=== PATIENT | female | born 1990 | race Caucasian/White ===

== ENCOUNTER → 2022-03-27 | Outpatient (CLI) | payer OTHER ==
[~2022-03-27] MED LIST: APRI; Augmentin 875-1 EACH PO; HYDR1TAB94 PO; Mirena1 EACH VG; NAPR550 PO
[2022-03-28 16:07] LABS: HPV 16 Negative (Negative); HPV 18 Negative (Negative); HPV OTHER HR TYPES Negative (Negative)
== END ==
LOC: LAB SHORT 14:38 → LAB 14:38 → RAD SHORT 14:38
PROVIDERS: Obstetrics & Gynecology
DX: Z01.419 Encounter for gynecological examination (general) (routine) without abnormal findings (principal)
CPT/HCPCS: 87624; G0123

== ENCOUNTER → 2022-05-13 | Outpatient (CLI) | payer OTHER ==
[2022-05-19 11:07] LABS: ANABASINE <1 ng/mL (.); COTININE >1000.0 ng/mL (.); NICOTINE 363 ng/mL (.)
== END ==
LOC: LAB 14:46 → LAB SHORT 14:46
PROVIDERS: Obstetrics & Gynecology
DX: F17.200 Nicotine dependence, unspecified, uncomplicated (principal)
CPT/HCPCS: G0480

== ENCOUNTER 2022-07-08 08:24 | Day surgery (SDC) | payer OTHER ==
[~2022-07-08] VITALS: Ht 157.5 cm; Wt 77.4 kg
[2022-07-08] MEDS ORDERED: NEXPLANON68 MG SC (08:53)
--- NOTE | 2022-07-08 13:29 | NUR ---
PT ARRIVED TO THE ROOM FROM PACU AT APPROXIMATELY 1255. PT ALERT AND ORIENTED AT TIME OF ARRIVAL. PT RATES LOWER ABD PAIN AT 5/10 BUT STATES RUQ PAIN IS 9/10. PT WAS GIVEN TYLENOL AND OXY FOR PAIN MANAGEMENT. SIMETHICONE GIVEN SINCE PT WAS COMPLAINING OF "GAS PAIN." PT WAS ABLE TO AMULATE AND VOID UPON ARRIVAL TO ROOM. PT STATED SHE WAS HUNGRY UPON ARRIVAL TO ROOM. PT WAS PROVIDED EDUCATION ABOUT STARTING SLOW WITH PO INTAKE AND TO START WITH CLEAR LIQUIDS. PT STATED SHE ALREADY HAD ICE CHIPS IN PACU AND TOLERATED WELL. PT'S FRIEND BROUGHT HER A BURGER AND FRIES, PT WAS AGAIN EDUCATED TO EAT SLOWLY. PT APPEARS TO BE TOLERATING PO WELL AT THIS TIME.
[2022-07-08] MEDS ORDERED: ACET500 PO (15:02)
[2022-07-08] MEDS ORDERED: ALORA1 EA10 TOP (15:03)
[2022-07-08] MEDS ORDERED: IBUP800 PO (15:04)
[2022-07-08] MEDS ORDERED: OXYC5 PO (15:04)
--- NOTE | 2022-07-08 15:39 | NUR ---
DISCHARGE PT WAS PROVIDED WRITTEN AND VERBAL DISCHARGE INSTRUCTIONS BY FRANCISCO JAVIER GARCIA. PRIOR TO DISCHARGE PT'S PAIN WAS MANAGED WITH PO PAIN MEDICATION, PT WAS ABLE TO AMBULATE, SHE TOLERATED PO AND PT WAS ABLE TO VOID PRIOR TO DISCHARGE. PT STATED SHE ALREADY HAD HER PRESCRIPTIONS AT HOME. PT DISCHARGED AT APPROXIMATELY 1530.
== END 2022-07-08 15:00 | disposition home or self-care (01) ==
LOC: ORSCMMR 08:24 → ORD 09:45 → ORSCMMR 09:45 → SURS 13:07 → ORSCMMR 15:00
PROVIDERS: Obstetrics & Gynecology
PROC: 8E0W4CZ Robotic Assisted Procedure of Trunk Region, Percutaneous Endoscopic Approach (ICD-10-PCS; principal; 2022-07-08 09:45)
PROC: 0UT94ZZ Resection of Uterus, Percutaneous Endoscopic Approach (ICD-10-PCS; principal; 2022-07-08 09:45)
PROC: 0UT74ZZ Resection of Bilateral Fallopian Tubes, Percutaneous Endoscopic Approach (ICD-10-PCS; principal; 2022-07-08 09:45)
PROC: 0UT24ZZ Resection of Bilateral Ovaries, Percutaneous Endoscopic Approach (ICD-10-PCS; principal; 2022-07-08 09:45)
DX: N80.30 Endometriosis of pelvic peritoneum, unspecified (principal); N72 Inflammatory disease of cervix uteri; N83.292 Other ovarian cyst, left side; N83.291 Other ovarian cyst, right side; R10.2 Pelvic and perineal pain
CPT/HCPCS: 58571; S2900; 88307; A9270; J0690; J1100; J1170; J1885; J2250; J2405; J2704; J2795; J3010; J7120

== ENCOUNTER → 2024-03-18 | Outpatient (CLI) | payer OTHER ==
[~2024-03-18] MED LIST changes: +ACET500 PO; +ALORA1 EA10 TOP; +IBUP800 PO; +NEXPLANON68 MG SC; +OXYC5 PO
== END ==
LOC: LAB 10:41 → LAB SHORT 10:41
DX: R30.0 Dysuria (principal)
CPT/HCPCS: 87077; 87086; 87186

== ENCOUNTER → 2024-04-15 | Outpatient (CLI) | payer OTHER ==
[2024-04-15 15:29] LABS: Source, Urine Clean Catch
[2024-04-15 16:55] LABS: Appearance, Urine Clear (Clear); Bilirubin, Urine Neg (Neg); Blood, Urine Neg (Neg); Color, Urine Yellow (P-Yellow); Glucose Qualitative, Urine Neg (Neg); Ketones, Urine Neg (Neg); Leukocyte Esterase, Urine 1+ (Neg); Nitrite, Urine Neg (Neg); Protein, Urine 2+ (Neg); Urobilinogen, Urine NORM (Normal)
[2024-04-15 17:08] LABS: Bacteria Many /hpf; Hyaline Casts 0-2 /lpf (0-2); Mucus Mod (0-Heavy); Squamous Epithelial Cells Few /hpf (Few)
[2024-04-15 19:16] LABS: Bacterial Vaginosis PCR Negative (NEGATIVE); Candida Group, PCR NOT DETECTED (NOT DETECT); Candida glabrata-krusei, PCR NOT DETECTED (NOT DETECT)
== END | disposition home or self-care (01) ==
LOC: LAB SHORT 15:26 → LAB 15:26
PROVIDERS: Obstetrics & Gynecology
DX: N89.8 Other specified noninflammatory disorders of vagina (principal); R39.15 Urgency of urination
CPT/HCPCS: 81001; 87086; 87481; 87661; 87801

== ENCOUNTER 2025-01-02 18:05 | Emergency (ER) | payer OTHER ==
[~2025-01-02] VITALS: Ht 160 cm; Wt 65.8 kg
[2025-01-02 18:28] VITALS: BP 114/79
[2025-01-02] MEDS ORDERED: HYDROcodone 5-APAP 325 TAB PO ONE (18:30)
[2025-01-02] MEDS ORDERED: Ketorolac Tromethamine 30mg Vial IM ONE (18:35)
[2025-01-02] MEDS ORDERED: Dexamethasone Sod Phos 10 MG/ML 1ML VIAL IM ONE (18:35)
== END 2025-01-02 18:51 | disposition home or self-care (01) ==
LOC: ER 18:05
DX: M54.50 Low back pain, unspecified (principal); G89.29 Other chronic pain; F17.210 Nicotine dependence, cigarettes, uncomplicated; Z79.899 Other long term (current) drug therapy
CPT/HCPCS: 96372; 99282-25; A9270; J1100; J1885